=== PATIENT | female | born 1940 | race Caucasian/White ===

== ENCOUNTER → 2020-03-14 | Outpatient (REF) | payer MEDICARE ==
[2020-03-14 15:14] LABS: HEMOGLOBIN 13.2 g/dl (12.0-15.5); MEAN CORPUSCULAR HEMOGLOBIN 28.9 pg (27.0-33.0); MEAN CORPUSCULAR HGB CONC 31.4 g/dl (32.0-36.5); MEAN CORPUSCULAR VOLUME 91.9 fl (80.0-96.0); PLATELET COUNT, AUTOMATED 319 10^3/uL (150-450); RED BLOOD COUNT 4.57 10^6/uL (4.00-5.40); WHITE BLOOD COUNT 6.8 10^3/uL (4.0-10.0)
[2020-03-14 15:34] LABS: HEMOGLOBIN A1c 5.4 %
[2020-03-14 15:36] LABS: ALBUMIN 3.3 GM/DL (3.2-5.2); ALT/SGPT 20 U/L (12-78); BILIRUBIN,TOTAL 1.3 MG/DL (0.2-1.0); BLOOD UREA NITROGEN 8 MG/DL (7-18); CALCIUM LEVEL 8.9 MG/DL (8.8-10.2); CARBON DIOXIDE LEVEL 32 MEQ/L (21-32); CHLORIDE LEVEL 99 MEQ/L (98-107); CHOLESTEROL LEVEL 136 MG/DL (<200); CHOLESTEROL RISK RATIO 2.385 (<5); CREATININE FOR GFR 0.74 MG/DL (0.55-1.30); GLOMERULAR FILTRATION RATE > 60.0 (>39); GLUCOSE, FASTING 72 MG/DL (70-100); HDL CHOLESTEROL 57 MG/DL (>40); LDL CHOLESTEROL 57 MG/DL (<100); NON-HDL-C 79 MG/DL; NT-PRO BNP 3604 PG/ML (<450); POTASSIUM SERUM 3.8 MEQ/L (3.5-5.1); SODIUM LEVEL 140 MEQ/L (136-145); TOTAL 25(OH) VITAMIN D 7.5 NG/ML (30.0-100.0); TOTAL PROTEIN 7.9 GM/DL (6.4-8.2); TRIGLYCERIDES LEVEL 109 MG/DL (<150)
== END ==
LOC: M LAB REF 12:07
PROVIDERS: ATTEND Physician Assistant Medical
DX: L03.039 Cellulitis of unspecified toe (principal); I10 Essential (primary) hypertension; I25.10 Atherosclerotic heart disease of native coronary artery without angina pectoris; E78.5 Hyperlipidemia, unspecified; R73.01 Impaired fasting glucose; R60.9 Edema, unspecified

== ENCOUNTER → 2020-04-03 | Outpatient (REF) | payer MEDICARE ==
[2020-04-03 20:09] LABS: CALCIUM LEVEL 9.3 MG/DL (8.8-10.2); CREATININE FOR GFR 1.01 MG/DL (0.55-1.30); GLOMERULAR FILTRATION RATE 56.4 (>39); POTASSIUM SERUM 3.6 MEQ/L (3.5-5.1)
== END ==
LOC: M LAB REF 17:10
PROVIDERS: ATTEND Physician Assistant Medical
DX: R60.9 Edema, unspecified (principal)

== ENCOUNTER → 2020-06-27 | Outpatient (REF) | payer MEDICARE ==
[2020-06-27 16:07] LABS: HEMATOCRIT 41.8 % (36.0-47.0); HEMOGLOBIN 12.7 g/dl (12.0-15.5); MEAN CORPUSCULAR HEMOGLOBIN 28.3 pg (27.0-33.0); MEAN CORPUSCULAR HGB CONC 30.4 g/dl (32.0-36.5); MEAN CORPUSCULAR VOLUME 93.1 fl (80.0-96.0); PLATELET COUNT, AUTOMATED 288 10^3/uL (150-450); RED BLOOD COUNT 4.49 10^6/uL (4.00-5.40); WHITE BLOOD COUNT 6.7 10^3/uL (4.0-10.0)
[2020-06-27 16:27] LABS: HEMOGLOBIN A1c 5.2 %
[2020-06-27 16:40] LABS: ALBUMIN 3.2 GM/DL (3.2-5.2); ALT/SGPT 77 U/L (12-78); BILIRUBIN,TOTAL 0.8 MG/DL (0.2-1.0); BLOOD UREA NITROGEN 12 MG/DL (7-18); CALCIUM LEVEL 9.3 MG/DL (8.8-10.2); CARBON DIOXIDE LEVEL 32 MEQ/L (21-32); CHLORIDE LEVEL 103 MEQ/L (98-107); CHOLESTEROL LEVEL 159 MG/DL (<200); CHOLESTEROL RISK RATIO 1.939 (<5); GLOMERULAR FILTRATION RATE > 60.0 (>39); GLUCOSE, FASTING 90 MG/DL (70-100); HDL CHOLESTEROL 82 MG/DL (>40); LDL CHOLESTEROL 59 MG/DL (<100); NON-HDL-C 77 MG/DL; POTASSIUM SERUM 4.4 MEQ/L (3.5-5.1); SODIUM LEVEL 138 MEQ/L (136-145); THYROID STIMULATING HORMONE 0.507 uIU/ML (0.358-3.740); TOTAL PROTEIN 7.7 GM/DL (6.4-8.2); TRIGLYCERIDES LEVEL 92 MG/DL (<150)
== END ==
LOC: M LABDRAWC 15:32 → M LAB REF 15:32
PROVIDERS: ATTEND Physician Assistant Medical
DX: R53.83 Other fatigue (principal); R73.01 Impaired fasting glucose; E78.5 Hyperlipidemia, unspecified

== ENCOUNTER → 2023-04-29 | Outpatient (CLI) | payer MEDICARE ==
[~2023-04-29] MED LIST: ACET325C5 PO; ASPI81TA26 PO; ATOR40TA75; FURO40TA2; LEVO75TA4; METO1TAB32; PERC5TAB12 PO; POTA-151; SPIR-10; XARE20TA
== END ==
LOC: M SOG 13:04
PROVIDERS: ATTEND Orthopaedic Surgery
DX: S52.501D Unspecified fracture of the lower end of right radius, subsequent encounter for closed fracture with routine healing (principal)

== ENCOUNTER → 2023-05-21 | Outpatient (CLI) | payer MEDICARE ==
[~2023-05-21] MED LIST changes: +ACET1TAB55 PO; -ATOR40TA75; +ATOR40TA75 PO; +BISA10SU PR; +CEPH500C PO; +COLA100C5 PO; -FURO40TA2; +FURO40TA2 PO; -LEVO75TA4; +LEVO75TA4 PO; -METO1TAB32; +METO1TAB32 PO; +MIDO5TA PO; +PANT40TA29 PO; +PERCOCET PO; -POTA-151; +POTA-151 PO; -SPIR-10; +SPIR-10 PO; +TRAM50TA2 PO; +XARE15TA PO; -XARE20TA; +XARE20TA PO
== END ==
LOC: M SOG 08:00
PROVIDERS: ATTEND Physician Assistant
DX: S52.501D Unspecified fracture of the lower end of right radius, subsequent encounter for closed fracture with routine healing (principal); Z53.9 Procedure and treatment not carried out, unspecified reason

== ENCOUNTER 2023-05-24 12:07 | Inpatient (IN) | payer MEDICARE ==
[~2023-05-24] VITALS: Ht 167.6 cm; Wt 61.5 kg
[~2023-05-24 12:07] MED LIST changes: -ACET1TAB55 PO; -BISA10SU PR; -CEPH500C PO; -COLA100C5 PO; -MIDO5TA PO; -PANT40TA29 PO; -PERCOCET PO; -TRAM50TA2 PO; -XARE15TA PO
[2023-05-24] MEDS ORDERED: PANT40TA29 PO (12:58)
[2023-05-24] MEDS ORDERED: COLA100C5 PO (12:58)
[2023-05-24] MEDS ORDERED: MIDO5TA PO (12:58)
[2023-05-24] MEDS ORDERED: ACET1TAB55 PO (12:58)
[2023-05-24] MEDS ORDERED: TRAM50TA2 PO (12:58)
[2023-05-24] MEDS ORDERED: XARE15TA PO (12:58)
[2023-05-24] MEDS ORDERED: BISA10SU PR (12:58)
[2023-05-24] MEDS ORDERED: PERCOCET PO (12:58)
[2023-05-24] MEDS ORDERED: CEPH500C PO (12:58)
[2023-05-24] MEDS ORDERED: oxyCODONE 5MG TAB PO PRN (13:10)
[2023-05-24] MEDS ORDERED: BISACODYL 10MG SUPP PR PRN (13:10)
[2023-05-24] MEDS ORDERED: traMADol 50 MG TAB PO PRN (13:10)
[2023-05-24 13:25] VITALS: BP 123/58; TEMP 97; O2SAT 100
[2023-05-24] MEDS ORDERED: MAG SULF 1GM/100ML (MAG RUN) 1 GM in IV 1 EA IV SCH (15:00)
[2023-05-24] MEDS: CEPHALEXIN 500 MG CAP PO SCH ×2 (15:32→21:22)
[2023-05-24] MEDS: ATORVASTATIN 20 MG TAB PO SCH (15:35)
[2023-05-24] MEDS: ACETAMINOPHEN TAB 650MG DOSE (2X325MG) PO SCH ×2 (16:00→21:22)
[2023-05-24] MEDS: MIDODRINE 5 MG TAB PO SCH (17:27)
[2023-05-24] MEDS: RIVAROXABAN 15MG TAB (XARELTO) PO SCH (17:27)
[2023-05-24 20:00] VITALS: BP 104/55; TEMP 97.5; O2SAT 99
[2023-05-24] MEDS: DOCUSATE SODIUM 100MG CAPSULE PO SCH (21:22)
[2023-05-24] MEDS: methocarbamoL 500 MG TAB PO SCH (21:22)
[2023-05-25 06:00] VITALS: BP 90/52; TEMP 97; O2SAT 99
[2023-05-25] MEDS: CEPHALEXIN 500 MG CAP PO SCH ×3 (06:16→20:16)
[2023-05-25 06:17] LABS: ALBUMIN 1.7 G/DL (3.2-5.2); BILIRUBIN,TOTAL 1.4 MG/DL (0.3-1.2); CALCIUM LEVEL 7.6 MG/DL (8.3-10.6); CREATININE FOR GFR 1.07 MG/DL (0.55-1.30); GLOMERULAR FILTRATION RATE 52.4 (>32); MAGNESIUM LEVEL 2.2 MG/DL (1.8-2.4); POTASSIUM SERUM 3.9 MMOL/L (3.5-5.1); TOTAL PROTEIN 5.9 G/DL (5.7-8.2)
[2023-05-25] MEDS: ACETAMINOPHEN TAB 650MG DOSE (2X325MG) PO SCH ×3 (07:55→20:16)
[2023-05-25] MEDS: MIDODRINE 5 MG TAB PO SCH ×3 (07:55→15:30)
[2023-05-25] MEDS: PANTOPRAZOLE 40MG TAB (PROTONIX) PO SCH (09:28)
[2023-05-25] MEDS: DOCUSATE SODIUM 100MG CAPSULE PO SCH ×2 (09:28→20:16)
[2023-05-25] MEDS: ATORVASTATIN 20 MG TAB PO SCH (09:28)
[2023-05-25] MEDS: ASPIRIN 81MG ENTERIC TABLET PO SCH (09:28)
[2023-05-25] MEDS: methocarbamoL 500 MG TAB PO SCH ×3 (09:28→20:16)
[2023-05-25] MEDS: LEVOTHYROXINE 75MCG TABLET (0.075MG) PO SCH (09:28)
[2023-05-25 14:00] VITALS: BP 109/53; O2SAT 98
[2023-05-25] MEDS: RIVAROXABAN 15MG TAB (XARELTO) PO SCH (18:13)
[2023-05-25 20:00] VITALS: BP 97/52; TEMP 97.4; O2SAT 98
[2023-05-26] VITALS (11 sets, daily range): BP systolic 99–124; BP diastolic 53–72; TEMP 96.5–98.4; O2SAT 95–100
[2023-05-26] MEDS: CEPHALEXIN 500 MG CAP PO SCH ×3 (05:26→21:51)
[2023-05-26 05:40] LABS: HEMATOCRIT 31.3 % (36.0-47.0); HEMOGLOBIN 9.8 g/dl (12.0-15.5); MEAN CORPUSCULAR HEMOGLOBIN 28.7 pg (27.0-33.0); MEAN CORPUSCULAR HGB CONC 31.3 g/dl (32.0-36.5); MEAN CORPUSCULAR VOLUME 91.8 fl (80.0-96.0); PLATELET COUNT, AUTOMATED 350 10^3/uL (150-450); RED BLOOD COUNT 3.41 10^6/uL (4.00-5.40); WHITE BLOOD COUNT 10.3 10^3/uL (4.0-10.0)
[2023-05-26 06:04] LABS: ALBUMIN 1.8 G/DL (3.2-5.2); BILIRUBIN,TOTAL 1.1 MG/DL (0.3-1.2); CALCIUM LEVEL 7.6 MG/DL (8.3-10.6); CREATININE FOR GFR 1.01 MG/DL (0.55-1.30); MAGNESIUM LEVEL 2.1 MG/DL (1.8-2.4); POTASSIUM SERUM 4.2 MMOL/L (3.5-5.1); TOTAL PROTEIN 5.9 G/DL (5.7-8.2)
[2023-05-26 06:06] LABS: TOTAL 25(OH) VITAMIN D 11.1 NG/ML (20.0-100.0)
[2023-05-26] MEDS: MIDODRINE 5 MG TAB PO SCH ×3 (07:55→16:05)
[2023-05-26] MEDS: ATORVASTATIN 20 MG TAB PO SCH (07:56)
[2023-05-26] MEDS: ACETAMINOPHEN TAB 650MG DOSE (2X325MG) PO SCH ×3 (07:56→21:51)
[2023-05-26] MEDS: DOCUSATE SODIUM 100MG CAPSULE PO SCH ×2 (07:56→21:51)
[2023-05-26] MEDS: PANTOPRAZOLE 40MG TAB (PROTONIX) PO SCH (07:56)
[2023-05-26] MEDS: ASPIRIN 81MG ENTERIC TABLET PO SCH (07:57)
[2023-05-26] MEDS: methocarbamoL 500 MG TAB PO SCH ×3 (07:57→21:51)
[2023-05-26] MEDS: LEVOTHYROXINE 75MCG TABLET (0.075MG) PO SCH (07:58)
[2023-05-26] MEDS ORDERED: ALBUTEROL SULFATE 2.5MG/0.5ML INH NEB SOLN NEB SCH (08:00)
[2023-05-26] MEDS ORDERED: methylPREDNISolone 125MG 2ML VIAL IV ONE (08:00)
[2023-05-26 08:40] LABS: ABG HCO3 20.3 MMOL/L (22.0-26.0); ABG O2 SATURATION 98.5 % (95.0-99.0); ABG PARTIAL PRESSURE O2 129.1 mmHg (75.0-100.0); ABG STANDARD HCO3 19.6 MMOL/L. (22.0-26.0); ABG TOTAL CO2 21.6 MMOL/L (23.0-31.0); ABG pH (ARTERIAL) 7.292 UNITS (7.350-7.450)
[2023-05-26] MEDS ORDERED: VITAMIN D 50,000 UNITS CAPSULE (ERGOCALCIFEROL 1.25MG) PO SCH (09:00)
[2023-05-26] MEDS ORDERED: FUROSEMIDE 40MG/4ML VIAL IV ONE (09:00)
[2023-05-26 11:06] LABS: PROCALCITONIN 0.21 ng/ml
[2023-05-26] MEDS ORDERED: MAGNESIUM CITRATE 300ML BTL PO ONE (17:00)
[2023-05-26] MEDS: RIVAROXABAN 15MG TAB (XARELTO) PO SCH (17:10)
[2023-05-26] MEDS ORDERED: FUROSEMIDE 20MG/2ML VIAL IV STA (18:57)
[2023-05-26] MEDS: ALBUTEROL SULFATE 2.5MG/0.5ML INH NEB SOLN NEB SCH (20:42)
[2023-05-26] MEDS: BISACODYL 10MG SUPP PR SCH (21:51)
[2023-05-27] MEDS ORDERED: HEPARIN SOD (PORCINE) 5000UNITS/ML 1ML VIAL/SYRINGE IV PRN (05:50)
[2023-05-27] MEDS: LEVOTHYROXINE 75MCG TABLET (0.075MG) PO SCH (06:00)
[2023-05-27] MEDS ORDERED: HEPARIN DRIP 25,000 UNITS in IV 1 EA IV SCH (06:00)
[2023-05-27] MEDS: CEPHALEXIN 500 MG CAP PO SCH ×3 (06:00→21:14)
[2023-05-27 06:03] VITALS: BP 108/50; TEMP 95.8; O2SAT 95
[2023-05-27 06:35] LABS: HEMATOCRIT 32.5 % (36.0-47.0); HEMOGLOBIN 10.2 g/dl (12.0-15.5); MEAN CORPUSCULAR HEMOGLOBIN 29.4 pg (27.0-33.0); MEAN CORPUSCULAR HGB CONC 31.4 g/dl (32.0-36.5); MEAN CORPUSCULAR VOLUME 93.7 fl (80.0-96.0); PLATELET COUNT, AUTOMATED 420 10^3/uL (150-450); RED BLOOD COUNT 3.47 10^6/uL (4.00-5.40); WHITE BLOOD COUNT 10.3 10^3/uL (4.0-10.0)
[2023-05-27 06:58] LABS: BILIRUBIN,TOTAL 1.1 MG/DL (0.3-1.2); CALCIUM LEVEL 7.7 MG/DL (8.3-10.6); CREATININE FOR GFR 1.16 MG/DL (0.55-1.30); GLOMERULAR FILTRATION RATE 47.7 (>32); POTASSIUM SERUM 4.4 MMOL/L (3.5-5.1); TOTAL PROTEIN 6.7 G/DL (5.7-8.2)
[2023-05-27] MEDS: ALBUTEROL SULFATE 2.5MG/0.5ML INH NEB SOLN NEB SCH ×2 (07:18→20:26)
[2023-05-27] MEDS: methocarbamoL 500 MG TAB PO SCH ×3 (08:00→21:14)
[2023-05-27] MEDS: PANTOPRAZOLE 40MG TAB (PROTONIX) PO SCH (08:00)
[2023-05-27] MEDS: ACETAMINOPHEN TAB 650MG DOSE (2X325MG) PO SCH ×3 (08:00→21:14)
[2023-05-27] MEDS: FUROSEMIDE 40MG/4ML VIAL IV SCH (08:00)
[2023-05-27] MEDS: ATORVASTATIN 20 MG TAB PO SCH (08:00)
[2023-05-27] MEDS: MIDODRINE 5 MG TAB PO SCH ×3 (08:00→15:31)
[2023-05-27 08:01] VITALS: O2SAT 93
[2023-05-27] MEDS: DOCUSATE SODIUM 100MG CAPSULE PO SCH ×2 (08:01→21:14)
[2023-05-27] MEDS: ASPIRIN 81MG ENTERIC TABLET PO SCH (08:01)
[2023-05-27] MEDS: BISACODYL 10MG SUPP PR SCH ×2 (08:21→21:14)
[2023-05-27] MEDS ORDERED: FUROSEMIDE 20MG/2ML VIAL IV SCH (09:00)
[2023-05-27 11:02] VITALS: BP 93/50; O2SAT 95
[2023-05-27 14:00] VITALS: BP 99/52; TEMP 97.5; O2SAT 98
[2023-05-27 19:47] VITALS: BP 97/50; TEMP 97; O2SAT 98
[2023-05-28] MEDS: CEPHALEXIN 500 MG CAP PO SCH ×2 (05:44→13:16)
[2023-05-28] MEDS: LEVOTHYROXINE 75MCG TABLET (0.075MG) PO SCH (05:44)
[2023-05-28 06:00] VITALS: BP 105/58; TEMP 97.6; O2SAT 98
[2023-05-28 06:08] LABS: HEMATOCRIT 29.9 % (36.0-47.0); HEMOGLOBIN 9.4 g/dl (12.0-15.5); MEAN CORPUSCULAR HEMOGLOBIN 29.4 pg (27.0-33.0); MEAN CORPUSCULAR HGB CONC 31.4 g/dl (32.0-36.5); MEAN CORPUSCULAR VOLUME 93.4 fl (80.0-96.0); PLATELET COUNT, AUTOMATED 407 10^3/uL (150-450); WHITE BLOOD COUNT 8.6 10^3/uL (4.0-10.0)
[2023-05-28 06:32] LABS: BILIRUBIN,TOTAL 0.9 MG/DL (0.3-1.2); CALCIUM LEVEL 7.5 MG/DL (8.3-10.6); CREATININE FOR GFR 1.08 MG/DL (0.55-1.30); GLOMERULAR FILTRATION RATE 51.8 (>32); MAGNESIUM LEVEL 1.9 MG/DL (1.8-2.4); POTASSIUM SERUM 3.8 MMOL/L (3.5-5.1); TOTAL PROTEIN 6.3 G/DL (5.7-8.2)
[2023-05-28] MEDS: ALBUTEROL SULFATE 2.5MG/0.5ML INH NEB SOLN NEB SCH ×2 (07:51→18:59)
[2023-05-28] MEDS: DOCUSATE SODIUM 100MG CAPSULE PO SCH ×2 (08:59→21:38)
[2023-05-28] MEDS: ATORVASTATIN 20 MG TAB PO SCH (08:59)
[2023-05-28] MEDS: ASPIRIN 81MG ENTERIC TABLET PO SCH (08:59)
[2023-05-28] MEDS: PANTOPRAZOLE 40MG TAB (PROTONIX) PO SCH (08:59)
[2023-05-28] MEDS: MIDODRINE 5 MG TAB PO SCH ×3 (08:59→16:14)
[2023-05-28] MEDS: methocarbamoL 500 MG TAB PO SCH ×3 (08:59→21:37)
[2023-05-28] MEDS: ACETAMINOPHEN TAB 650MG DOSE (2X325MG) PO SCH ×3 (09:00→21:38)
[2023-05-28] MEDS: BISACODYL 10MG SUPP PR SCH ×2 (09:00→21:38)
[2023-05-28] MEDS: FUROSEMIDE 40MG/4ML VIAL IV SCH (09:00)
[2023-05-28 14:00] VITALS: BP 109/55; TEMP 97.6; O2SAT 100
[2023-05-28] MEDS ORDERED: FLEET ENEMA PR PRN (17:45)
[2023-05-28 20:00] VITALS: BP 112/56; TEMP 96.7; O2SAT 100
[2023-05-29] MEDS: LEVOTHYROXINE 75MCG TABLET (0.075MG) PO SCH (05:32)
[2023-05-29 06:00] VITALS: BP 113/56; TEMP 96.4
[2023-05-29] MEDS: ALBUTEROL SULFATE 2.5MG/0.5ML INH NEB SOLN NEB SCH ×2 (07:39→20:55)
[2023-05-29] MEDS: BISACODYL 10MG SUPP PR SCH ×2 (09:00→20:51)
[2023-05-29] MEDS: ACETAMINOPHEN TAB 650MG DOSE (2X325MG) PO SCH ×3 (10:04→20:43)
[2023-05-29] MEDS: methocarbamoL 500 MG TAB PO SCH ×3 (10:04→20:42)
[2023-05-29] MEDS: ASPIRIN 81MG ENTERIC TABLET PO SCH (10:05)
[2023-05-29] MEDS: DOCUSATE SODIUM 100MG CAPSULE PO SCH ×2 (10:05→20:51)
[2023-05-29] MEDS: PANTOPRAZOLE 40MG TAB (PROTONIX) PO SCH (10:05)
[2023-05-29] MEDS: ATORVASTATIN 20 MG TAB PO SCH (10:05)
[2023-05-29] MEDS: FUROSEMIDE 40MG/4ML VIAL IV SCH (10:06)
[2023-05-29] MEDS: MIDODRINE 5 MG TAB PO SCH ×3 (10:09→16:47)
[2023-05-29 14:00] VITALS: BP 105/58; TEMP 96.8; O2SAT 98
[2023-05-29 16:47] VITALS: BP 103/55
[2023-05-29 20:34] VITALS: BP 100/55; TEMP 97.3; O2SAT 98
[2023-05-30 05:23] VITALS: BP 109/59; TEMP 97.3; O2SAT 98
[2023-05-30] MEDS: LEVOTHYROXINE 75MCG TABLET (0.075MG) PO SCH (05:32)
[2023-05-30] MEDS: ALBUTEROL SULFATE 2.5MG/0.5ML INH NEB SOLN NEB SCH ×2 (07:20→20:14)
[2023-05-30] MEDS: PANTOPRAZOLE 40MG TAB (PROTONIX) PO SCH (08:44)
[2023-05-30] MEDS: ATORVASTATIN 20 MG TAB PO SCH (08:44)
[2023-05-30] MEDS: ASPIRIN 81MG ENTERIC TABLET PO SCH (08:44)
[2023-05-30] MEDS: methocarbamoL 500 MG TAB PO SCH ×3 (08:44→20:25)
[2023-05-30] MEDS: MIDODRINE 5 MG TAB PO SCH ×3 (08:44→17:14)
[2023-05-30] MEDS: ACETAMINOPHEN TAB 650MG DOSE (2X325MG) PO SCH ×3 (08:44→20:25)
[2023-05-30] MEDS: DOCUSATE SODIUM 100MG CAPSULE PO SCH ×2 (08:45→20:25)
[2023-05-30] MEDS: BISACODYL 10MG SUPP PR SCH ×2 (08:45→20:25)
[2023-05-30] MEDS: FUROSEMIDE 40MG/4ML VIAL IV SCH (08:45)
[2023-05-30 14:00] VITALS: BP 121/58; TEMP 96.8; O2SAT 99
[2023-05-30] MEDS: RIVAROXABAN 15MG TAB (XARELTO) PO SCH (18:50)
[2023-05-30 19:48] VITALS: BP 121/64; TEMP 98.7; O2SAT 99
[2023-05-31 05:12] VITALS: BP 113/56; TEMP 97.3; O2SAT 96
[2023-05-31] MEDS: LEVOTHYROXINE 75MCG TABLET (0.075MG) PO SCH (05:14)
[2023-05-31] MEDS: ALBUTEROL SULFATE 2.5MG/0.5ML INH NEB SOLN NEB SCH (07:19)
[2023-05-31] MEDS: PANTOPRAZOLE 40MG TAB (PROTONIX) PO SCH (07:59)
[2023-05-31] MEDS: DOCUSATE SODIUM 100MG CAPSULE PO SCH ×2 (08:00→20:48)
[2023-05-31] MEDS: MIDODRINE 5 MG TAB PO SCH ×3 (08:00→15:30)
[2023-05-31] MEDS: ASPIRIN 81MG ENTERIC TABLET PO SCH (08:00)
[2023-05-31] MEDS: ATORVASTATIN 20 MG TAB PO SCH (08:00)
[2023-05-31] MEDS: methocarbamoL 500 MG TAB PO SCH (08:00)
[2023-05-31] MEDS: ACETAMINOPHEN TAB 650MG DOSE (2X325MG) PO SCH ×3 (08:00→20:48)
[2023-05-31] MEDS: BISACODYL 10MG SUPP PR SCH (08:01)
[2023-05-31] MEDS ORDERED: FUROSEMIDE 40 MG TAB PO SCH (09:00)
[2023-05-31 11:51] VITALS: BP 108/52
[2023-05-31 11:55] LABS: HEMATOCRIT 36.1 % (36.0-47.0); HEMOGLOBIN 11.3 g/dl (12.0-15.5); MEAN CORPUSCULAR HEMOGLOBIN 28.9 pg (27.0-33.0); MEAN CORPUSCULAR HGB CONC 31.3 g/dl (32.0-36.5); MEAN CORPUSCULAR VOLUME 92.3 fl (80.0-96.0); PLATELET COUNT, AUTOMATED 416 10^3/uL (150-450); RED BLOOD COUNT 3.91 10^6/uL (4.00-5.40); WHITE BLOOD COUNT 8.5 10^3/uL (4.0-10.0)
[2023-05-31 12:14] LABS: ALBUMIN 2.4 G/DL (3.2-5.2); ALKALINE PHOSPHATASE 273 U/L (46-116); ALT/SGPT 27 U/L (7.0-40); AST/SGOT 35 U/L (<34); BILIRUBIN,TOTAL 1.1 MG/DL (0.3-1.2); BLOOD UREA NITROGEN 16 MG/DL (9-23); CALCIUM LEVEL 8.3 MG/DL (8.3-10.6); CARBON DIOXIDE LEVEL 25 MMOL/L (20-31); CHLORIDE LEVEL 105 MMOL/L (98-107); CREATININE FOR GFR 0.95 MG/DL (0.55-1.30); GLOMERULAR FILTRATION RATE > 60.0 (>32); GLUCOSE, FASTING 67 MG/DL (74-106); MAGNESIUM LEVEL 1.4 MG/DL (1.8-2.4); POTASSIUM SERUM 3.6 MMOL/L (3.5-5.1); SODIUM LEVEL 143 MMOL/L (136-145); TOTAL PROTEIN 6.8 G/DL (5.7-8.2)
[2023-05-31] MEDS ORDERED: MAG SULF 1GM/100ML (MAG RUN) 1 GM in IV 1 EA IV ONE (13:00)
[2023-05-31] MEDS ORDERED: methocarbamoL 500 MG TAB PO PRN (13:00)
[2023-05-31 14:00] VITALS: BP 113/58; TEMP 97.6; O2SAT 99
[2023-05-31] MEDS: RIVAROXABAN 15MG TAB (XARELTO) PO SCH (17:11)
[2023-05-31 20:00] VITALS: BP 99/56; TEMP 96.4; O2SAT 99
[2023-06-01] MEDS: LEVOTHYROXINE 75MCG TABLET (0.075MG) PO SCH (05:57)
[2023-06-01 06:00] VITALS: BP 111/56; TEMP 96.3; O2SAT 99
[2023-06-01] MEDS: PANTOPRAZOLE 40MG TAB (PROTONIX) PO SCH (07:43)
[2023-06-01] MEDS: MIDODRINE 5 MG TAB PO SCH ×2 (07:43→11:02)
[2023-06-01] MEDS: ATORVASTATIN 20 MG TAB PO SCH (07:43)
[2023-06-01] MEDS: ASPIRIN 81MG ENTERIC TABLET PO SCH (07:43)
[2023-06-01] MEDS: ACETAMINOPHEN TAB 650MG DOSE (2X325MG) PO SCH (07:44)
[2023-06-01] MEDS: DOCUSATE SODIUM 100MG CAPSULE PO SCH (07:44)
[2023-06-01 09:06] LABS: ALBUMIN 2.5 G/DL (3.2-5.2); BILIRUBIN,TOTAL 1.1 MG/DL (0.3-1.2); CALCIUM LEVEL 8.5 MG/DL (8.3-10.6); CREATININE FOR GFR 0.96 MG/DL (0.55-1.30); GLOMERULAR FILTRATION RATE 59.4 (>32); MAGNESIUM LEVEL 1.8 MG/DL (1.8-2.4); POTASSIUM SERUM 3.3 MMOL/L (3.5-5.1); TOTAL PROTEIN 7.2 G/DL (5.7-8.2)
[2023-06-01 10:57] VITALS: BP 110/54
[2023-06-01] MEDS ORDERED: POTASSIUM CHLORIDE 10MEQ SR TABLET PO ONE (11:00)
[2023-06-01] MEDS ORDERED: DRIS50003 PO (13:49)
[2023-06-01] MEDS ORDERED: POTA-136 PO (13:49)
[2023-06-01] MEDS ORDERED: MIDO10TA PO (17:04)
[2023-06-02] MEDS ORDERED: POTASSIUM CHLORIDE 10MEQ SR TABLET PO SCH (09:00)
== END 2023-06-01 15:30 | disposition home health service (06) | DRG 871 ==
LOC: M PM&R 13:05
PROVIDERS: ADMIT Student in an Organized Health Care Education/Training Program; ATTEND Student in an Organized Health Care Education/Training Program
PROC: B246ZZZ Ultrasonography of Right and Left Heart (ICD-10-PCS; principal; 2023-05-26)
DX: R78.81 Bacteremia (principal); I50.23 Acute on chronic systolic (congestive) heart failure; N39.0 Urinary tract infection, site not specified; S52.501D Unspecified fracture of the lower end of right radius, subsequent encounter for closed fracture with routine healing; I11.0 Hypertensive heart disease with heart failure; B96.20 Unspecified Escherichia coli [E. coli] as the cause of diseases classified elsewhere; K59.09 Other constipation; M81.0 Age-related osteoporosis without current pathological fracture; Z74.09 Other reduced mobility; Z74.1 Need for assistance with personal care; E78.00 Pure hypercholesterolemia, unspecified; E03.9 Hypothyroidism, unspecified; I25.10 Atherosclerotic heart disease of native coronary artery without angina pectoris; I27.20 Pulmonary hypertension, unspecified; I48.91 Unspecified atrial fibrillation; I73.9 Peripheral vascular disease, unspecified; E55.9 Vitamin D deficiency, unspecified; K44.9 Diaphragmatic hernia without obstruction or gangrene; S22.000S Wedge compression fracture of unspecified thoracic vertebra, sequela; S32.000S Wedge compression fracture of unspecified lumbar vertebra, sequela; Z95.0 Presence of cardiac pacemaker; Z89.421 Acquired absence of other right toe(s); Z95.5 Presence of coronary angioplasty implant and graft; Z95.828 Presence of other vascular implants and grafts; Z90.49 Acquired absence of other specified parts of digestive tract; Z96.652 Presence of left artificial knee joint; Z96.643 Presence of artificial hip joint, bilateral; Z86.73 Personal history of transient ischemic attack (TIA), and cerebral infarction without residual deficits; Z86.718 Personal history of other venous thrombosis and embolism; Z79.82 Long term (current) use of aspirin; Z79.01 Long term (current) use of anticoagulants; Z79.890 Hormone replacement therapy; Z79.899 Other long term (current) drug therapy; Z88.1 Allergy status to other antibiotic agents; Z88.8 Allergy status to other drugs, medicaments and biological substances; Z91.040 Latex allergy status

== ENCOUNTER → 2023-06-03 | Outpatient (CLI) | payer MEDICARE ==
[~2023-06-03] MED LIST changes: +ACET1TAB55 PO; +BISA10SU PR; +CEPH500C PO; +COLA100C5 PO; +DRIS50003 PO; +MIDO10TA PO; +MIDO5TA PO; +PANT40TA29 PO; +PERCOCET PO; +POTA-136 PO; +TRAM50TA2 PO; +XARE15TA PO
== END ==
LOC: M SOG 08:03
PROVIDERS: ATTEND Physician Assistant
DX: S52.501A Unspecified fracture of the lower end of right radius, initial encounter for closed fracture (principal); Y93.9 Activity, unspecified; Y92.9 Unspecified place or not applicable

== ENCOUNTER → 2023-07-01 | Outpatient (REF) | payer MEDICARE ==
[2023-07-01 17:00] LABS: BASO # 0.1 10^3/uL (0.0-0.2); EOS # 0.2 10^3/uL (0.0-0.5); EOS % 3.2 % (0.0-3.0); HEMATOCRIT 35.4 % (36.0-47.0); HEMOGLOBIN 11.2 g/dl (12.0-15.5); LYMPH # 1.7 10^3/uL (1.5-5.0); LYMPH % 23.4 % (24.0-44.0); MEAN CORPUSCULAR HGB CONC 31.6 g/dl (32.0-36.5); MEAN CORPUSCULAR VOLUME 91.7 fl (80.0-96.0); MONO # 0.6 10^3/uL (0.0-0.8); NEUTROPHILS # 4.7 10^3/uL (1.5-8.5); NEUTROPHILS % 64.3 % (36.0-66.0); PLATELET COUNT, AUTOMATED 271 10^3/uL (150-450); RED BLOOD COUNT 3.86 10^6/uL (4.00-5.40); WHITE BLOOD COUNT 7.2 10^3/uL (4.0-10.0)
[2023-07-01 17:26] LABS: ALKALINE PHOSPHATASE 257 U/L (46-116); ALT/SGPT 62 U/L (7.0-40); AST/SGOT 64 U/L (<34); BILIRUBIN,DIRECT 0.5 MG/DL (<0.4); BILIRUBIN,TOTAL 0.9 MG/DL (0.3-1.2); BLOOD UREA NITROGEN 12 MG/DL (9-23); CALCIUM LEVEL 9.6 MG/DL (8.3-10.6); CARBON DIOXIDE LEVEL 27 MMOL/L (20-31); CHLORIDE LEVEL 105 MMOL/L (98-107); CREATININE FOR GFR 0.79 MG/DL (0.55-1.30); GLOMERULAR FILTRATION RATE > 60.0 (>32); GLUCOSE, FASTING 81 MG/DL (74-106); POTASSIUM SERUM 4.6 MMOL/L (3.5-5.1); SODIUM LEVEL 142 MMOL/L (136-145); TOTAL PROTEIN 7.1 G/DL (5.7-8.2)
[2023-07-01 18:01] LABS: HEPATITIS B CORE ANTIBODY IGM NEGATIVE (NEGATIVE); HEPATITIS C VIRUS ABY INDEX 0.13 INDEX (<0.8)
== END ==
LOC: M SHH 15:34
PROVIDERS: ATTEND Nurse Practitioner
DX: R74.01 Elevation of levels of liver transaminase levels (principal); Z79.899 Other long term (current) drug therapy

== ENCOUNTER → 2023-07-15 | Outpatient (REF) | payer MEDICARE ==
[~2023-07-15] MED LIST changes: +ALBU2.5V10 NEB; +CEFD1CAP9 PO; +FURO20TA2 PO; +POTA-149 PO
[2023-07-15 15:05] LABS: APPEARANCE, URINE HAZY (CLEAR); BACTERIA, URINE AUTO NEGATIVE (NEGATIVE); BILIRUBIN, URINE AUTO NEGATIVE (NEGATIVE); BLOOD, URINE BLOOD 1+ (NEGATIVE); COLOR, URINE YELLOW (YELLOW); GLUCOSE, URINE (UA) AUTO NEGATIVE (NEGATIVE); KETONE, URINE AUTO NEGATIVE (NEGATIVE); LEUKOCYTE ESTERASE, URINE AUTO 3+ (NEGATIVE); NITRITE, URINE AUTO NEGATIVE (NEGATIVE); PROTEIN, URINE AUTO NEGATIVE (NEGATIVE); RBC, URINE AUTO 0 /HPF (0-3); SPECIFIC GRAVITY URINE AUTO 1.003 (1.002-1.035); SQUAMOUS EPITHELIAL CELL UR AU 1 /HPF (0-6); UROBILINOGEN, URINE AUTO 0.2 mg/dL (0.0-2.0); WBC, URINE AUTO 42 /HPF (0-3)
[2023-07-15 15:09] LABS: BASO # 0.1 10^3/uL (0.0-0.2); BASO % 1.1 % (0.0-1.0); EOS # 0.2 10^3/uL (0.0-0.5); EOS % 2.9 % (0.0-3.0); HEMATOCRIT 37.2 % (36.0-47.0); HEMOGLOBIN 11.5 g/dl (12.0-15.5); LYMPH # 1.8 10^3/uL (1.5-5.0); LYMPH % 21.5 % (24.0-44.0); MEAN CORPUSCULAR HGB CONC 30.9 g/dl (32.0-36.5); MEAN CORPUSCULAR VOLUME 93.7 fl (80.0-96.0); MONO # 0.7 10^3/uL (0.0-0.8); MONO % 8.4 % (2.0-8.0); NEUTROPHILS # 5.4 10^3/uL (1.5-8.5); NEUTROPHILS % 65.7 % (36.0-66.0); PLATELET COUNT, AUTOMATED 352 10^3/uL (150-450); RED BLOOD COUNT 3.97 10^6/uL (4.00-5.40); WHITE BLOOD COUNT 8.2 10^3/uL (4.0-10.0)
[2023-07-15 15:35] LABS: IRON (FE) 39 UG/DL (50-170); PERCENT SATURATION 15.2 % (13.2-45.0); TOTAL IRON BINDING CAPACITY 257 UG/DL (250-425)
[2023-07-15 15:39] LABS: ALBUMIN 3.1 G/DL (3.2-5.2); ALKALINE PHOSPHATASE 197 U/L (46-116); ALT/SGPT 29 U/L (7.0-40); AST/SGOT 25 U/L (<34); BILIRUBIN,TOTAL 1.1 MG/DL (0.3-1.2); BLOOD UREA NITROGEN 13 MG/DL (9-23); CARBON DIOXIDE LEVEL 24 MMOL/L (20-31); CHLORIDE LEVEL 105 MMOL/L (98-107); CREATININE FOR GFR 0.92 MG/DL (0.55-1.30); GLOMERULAR FILTRATION RATE > 60.0 (>32); GLUCOSE, FASTING 91 MG/DL (74-106); POTASSIUM SERUM 4.8 MMOL/L (3.5-5.1); SODIUM LEVEL 138 MMOL/L (136-145); THYROID STIMULATING HORMONE 0.442 uIU/ML (0.55-4.78); TOTAL PROTEIN 6.9 G/DL (5.7-8.2); VITAMIN B12 LEVEL 612 PG/ML (211-911)
[2023-07-16 15:08] LABS: EBV VIRAL CAPSID AG IgG >600.0 U/mL (0.0-17.9); EBV VIRAL CAPSID AG IgM <36.0 U/mL (0.0-35.9)
== END ==
LOC: M SHH 13:29
PROVIDERS: ATTEND Physician Assistant Medical
DX: R11.0 Nausea (principal); R53.83 Other fatigue; E03.9 Hypothyroidism, unspecified; N39.0 Urinary tract infection, site not specified; I11.0 Hypertensive heart disease with heart failure; Z86.39 Personal history of other endocrine, nutritional and metabolic disease

== ENCOUNTER 2023-07-17 20:43 | Inpatient (IN) | payer MEDICARE ==
[~2023-07-17] VITALS: Ht 162.6 cm; Wt 66.0 kg
[~2023-07-17 20:43] MED LIST changes: -ALBU2.5V10 NEB; -CEFD1CAP9 PO; -FURO20TA2 PO; -POTA-149 PO
[2023-07-17 21:03] LABS: ABG BASE EXCESS -7.8 (-2.0-2.0); ABG HCO3 18.4 MMOL/L (22.0-26.0); ABG O2 SATURATION 97.2 % (95.0-99.0); ABG PARTIAL PRESSURE CO2 40.2 mmHg (35.0-45.0); ABG PARTIAL PRESSURE O2 108.6 mmHg (75.0-100.0); ABG STANDARD HCO3 18.2 MMOL/L. (22.0-26.0); ABG TOTAL CO2 19.7 MMOL/L (23.0-31.0); ABG pH (ARTERIAL) 7.279 UNITS (7.350-7.450)
[2023-07-17] MEDS: IPRATROPIUM 0.5MG/ALBUTEROL 2.5MG INH SOL UD 3ML (DUONEB) NEB SCH ×2 (21:04→21:26)
[2023-07-17] MEDS ORDERED: methylPREDNISolone 125MG 2ML VIAL IV ONE (21:10)
[2023-07-17 21:17] LABS: BASO # 0.1 10^3/uL (0.0-0.2); EOS # 0.4 10^3/uL (0.0-0.5); EOS % 4.2 % (0.0-3.0); HEMATOCRIT 36.9 % (36.0-47.0); HEMOGLOBIN 11.3 g/dl (12.0-15.5); LYMPH # 2.2 10^3/uL (1.5-5.0); LYMPH % 22.3 % (24.0-44.0); MEAN CORPUSCULAR HEMOGLOBIN 29.3 pg (27.0-33.0); MEAN CORPUSCULAR HGB CONC 30.6 g/dl (32.0-36.5); MEAN CORPUSCULAR VOLUME 95.6 fl (80.0-96.0); MONO # 0.6 10^3/uL (0.0-0.8); MONO % 6.2 % (2.0-8.0); NEUTROPHILS # 6.4 10^3/uL (1.5-8.5); PLATELET COUNT, AUTOMATED 417 10^3/uL (150-450); RED BLOOD COUNT 3.86 10^6/uL (4.00-5.40); WHITE BLOOD COUNT 9.8 10^3/uL (4.0-10.0)
[2023-07-17] MEDS ORDERED: ONDANSETRON 4MG 2ML VIAL IV ONE (21:20)
[2023-07-17] MEDS ORDERED: ALBUTEROL SULFATE 2.5MG/0.5ML INH NEB SOLN INH ONE (21:20)
[2023-07-17] MEDS ORDERED: IPRATROPIUM 0.02% SOLN 0.5MG 2.5ML NEB INH ONE (21:20)
[2023-07-17] MEDS ORDERED: ONDANSETRON 4MG 2ML VIAL As Ordered ONE (21:21)
[2023-07-17 21:37] LABS: CK-MB VALUE MASS 1.8 NG/ML (<3.6)
[2023-07-17 22:45] LABS: ALBUMIN 2.1 G/DL (3.2-5.2); ALKALINE PHOSPHATASE 139 U/L (46-116); ALT/SGPT 19 U/L (7.0-40); AST/SGOT 24 U/L (<34); BILIRUBIN,DIRECT 0.4 MG/DL (<0.4); BILIRUBIN,TOTAL 0.7 MG/DL (0.3-1.2); BLOOD UREA NITROGEN 12 MG/DL (9-23); CALCIUM LEVEL 6.1 MG/DL (8.3-10.6); CARBON DIOXIDE LEVEL 15 MMOL/L (20-31); CHLORIDE LEVEL 117 MMOL/L (98-107); CPK CREATINE PHOSPHOKINASE 49 U/L (34-145); GLOMERULAR FILTRATION RATE > 60.0 (>32); GLUCOSE, FASTING 125 MG/DL (74-106); MB/CK RELATIVE INDEX 3.67 (< OR =4); POTASSIUM SERUM 3.2 MMOL/L (3.5-5.1); SODIUM LEVEL 144 MMOL/L (136-145); TOTAL PROTEIN 4.8 G/DL (5.7-8.2)
[2023-07-17] MEDS ORDERED: ISOVUE-370 76% 100ML VIAL As Ordered ONE (23:14)
[2023-07-17 23:38] LABS: PROCALCITONIN 0.05 ng/ml
[2023-07-18] VITALS (7 sets, daily range): BP systolic 82–109; BP diastolic 52–61; TEMP 96.8–98; O2SAT 93–98
[2023-07-18 00:39] LABS: CK-MB VALUE MASS 2.4 NG/ML (<3.6)
[2023-07-18 00:40] LABS: MB/CK RELATIVE INDEX 3.63 (< OR =4)
[2023-07-18] MEDS ORDERED: ISOVUE-370 76% 100ML VIAL As Ordered ONE (00:42)
[2023-07-18] MEDS ORDERED: PIPERACILLIN/TAZOBACTAM SOD 4.5 GM in D5W MINI-BAG PLUS 50 ML IV ONE (03:45)
[2023-07-18] MEDS ORDERED: ACETAMINOPHEN TAB 650MG DOSE (2X325MG) PO PRN (04:00)
[2023-07-18] MEDS ORDERED: ALBUTEROL SULFATE 2.5MG/0.5ML INH NEB SOLN NEB PRN ×2 (04:00→08:55)
[2023-07-18] MEDS ORDERED: FURO20TA2 PO (04:58)
[2023-07-18] MEDS ORDERED: ALBU2.5V10 NEB (04:58)
[2023-07-18] MEDS ORDERED: CEFD1CAP9 PO (04:58)
[2023-07-18] MEDS ORDERED: MIDO5TA PO (04:58)
[2023-07-18] MEDS ORDERED: XARE15TA PO (04:58)
[2023-07-18] MEDS ORDERED: POTA-149 PO (04:58)
[2023-07-18] MEDS ORDERED: HOME MED LIST COMPLETE! XX SCH (05:00)
[2023-07-18] MEDS ORDERED: POTASSIUM CHLORIDE 10% LIQ 20MEQ/15ML UDC PO ONE (05:00)
[2023-07-18] MEDS: methylPREDNISolone 40MG 1ML VIAL IV SCH ×3 (05:47→20:33)
[2023-07-18] MEDS: IPRATROPIUM 0.5MG/ALBUTEROL 2.5MG INH SOL UD 3ML (DUONEB) NEB SCH ×3 (07:12→20:04)
[2023-07-18 07:47] LABS: ALBUMIN 3.3 G/DL (3.2-5.2); CALCIUM LEVEL 8.4 MG/DL (8.3-10.6); CREATININE FOR GFR 1.02 MG/DL (0.55-1.30); FREE T4 1.22 NG/DL (0.89-1.76); GLOMERULAR FILTRATION RATE 55.4 (>32); POTASSIUM SERUM 4.7 MMOL/L (3.5-5.1); THYROID STIMULATING HORMONE 0.471 uIU/ML (0.55-4.78); TOTAL PROTEIN 7.3 G/DL (5.7-8.2)
[2023-07-18] MEDS: CARVedilol 3.125 MG TAB PO SCH (09:00)
[2023-07-18] MEDS: MIDODRINE 5 MG TAB PO SCH ×3 (10:01→17:15)
[2023-07-18] MEDS: ATORVASTATIN 20 MG TAB PO SCH (10:01)
[2023-07-18] MEDS: ASPIRIN 81MG ENTERIC TABLET PO SCH (10:01)
[2023-07-18] MEDS: LEVOTHYROXINE 75MCG TABLET (0.075MG) PO SCH (10:01)
[2023-07-18] MEDS: FUROSEMIDE 40MG/4ML VIAL IV SCH (10:01)
[2023-07-18] MEDS: RIVAROXABAN 15MG TAB (XARELTO) PO SCH (17:15)
[2023-07-19] MEDS ORDERED: MIDODRINE 5 MG TAB PO ONE
[2023-07-19 00:56] VITALS: BP 98/60
[2023-07-19] MEDS: IPRATROPIUM 0.5MG/ALBUTEROL 2.5MG INH SOL UD 3ML (DUONEB) NEB SCH ×4 (02:07→19:49)
[2023-07-19 04:01] VITALS: BP 96/58; TEMP 97; O2SAT 98
[2023-07-19] MEDS: LEVOTHYROXINE 75MCG TABLET (0.075MG) PO SCH (05:08)
[2023-07-19] MEDS: methylPREDNISolone 40MG 1ML VIAL IV SCH (05:08)
[2023-07-19 06:31] LABS: BASO % 0.1 % (0.0-1.0); HEMATOCRIT 32.4 % (36.0-47.0); HEMOGLOBIN 10.1 g/dl (12.0-15.5); LYMPH # 0.5 10^3/uL (1.5-5.0); LYMPH % 3.9 % (24.0-44.0); MEAN CORPUSCULAR HEMOGLOBIN 28.8 pg (27.0-33.0); MEAN CORPUSCULAR HGB CONC 31.2 g/dl (32.0-36.5); MEAN CORPUSCULAR VOLUME 92.3 fl (80.0-96.0); MONO # 0.4 10^3/uL (0.0-0.8); MONO % 2.9 % (2.0-8.0); NEUTROPHILS # 11.4 10^3/uL (1.5-8.5); NEUTROPHILS % 92.5 % (36.0-66.0); PLATELET COUNT, AUTOMATED 314 10^3/uL (150-450); RED BLOOD COUNT 3.51 10^6/uL (4.00-5.40); WHITE BLOOD COUNT 12.4 10^3/uL (4.0-10.0)
[2023-07-19 06:59] LABS: CALCIUM LEVEL 8.4 MG/DL (8.3-10.6); CREATININE FOR GFR 1.25 MG/DL (0.55-1.30); GLOMERULAR FILTRATION RATE 43.8 (>32); POTASSIUM SERUM 4.8 MMOL/L (3.5-5.1)
[2023-07-19 07:52] VITALS: BP 110/62; TEMP 98; O2SAT 98
[2023-07-19] MEDS: CARVedilol 3.125 MG TAB PO SCH (09:00)
[2023-07-19] MEDS: ASPIRIN 81MG ENTERIC TABLET PO SCH (09:10)
[2023-07-19] MEDS: FUROSEMIDE 40MG/4ML VIAL IV SCH (09:10)
[2023-07-19] MEDS: ATORVASTATIN 20 MG TAB PO SCH (09:10)
[2023-07-19] MEDS: MIDODRINE 5 MG TAB PO SCH ×3 (09:11→17:16)
[2023-07-19 12:24] VITALS: BP 104/70; TEMP 97.7; O2SAT 100
[2023-07-19] MEDS: guaiFENesin 200 MG TAB PO SCH ×2 (12:49→17:17)
[2023-07-19] MEDS: AZITHROMYCIN 250MG TABLET PO SCH (13:38)
[2023-07-19] MEDS: RIVAROXABAN 15MG TAB (XARELTO) PO SCH (17:17)
[2023-07-19 19:45] VITALS: BP 109/65; O2SAT 98
[2023-07-20] VITALS (21 sets, daily range): BP systolic 98–129; BP diastolic 56–71; TEMP 96–98.1; O2SAT 61–100
[2023-07-20] MEDS: IPRATROPIUM 0.5MG/ALBUTEROL 2.5MG INH SOL UD 3ML (DUONEB) NEB SCH ×4 (01:16→19:37)
[2023-07-20 06:11] LABS: BASO % 0.1 % (0.0-1.0); HEMATOCRIT 34.4 % (36.0-47.0); HEMOGLOBIN 10.9 g/dl (12.0-15.5); LYMPH # 0.6 10^3/uL (1.5-5.0); LYMPH % 7.7 % (24.0-44.0); MEAN CORPUSCULAR HEMOGLOBIN 29.4 pg (27.0-33.0); MEAN CORPUSCULAR HGB CONC 31.7 g/dl (32.0-36.5); MEAN CORPUSCULAR VOLUME 92.7 fl (80.0-96.0); MONO # 0.5 10^3/uL (0.0-0.8); MONO % 7.2 % (2.0-8.0); NEUTROPHILS # 6.1 10^3/uL (1.5-8.5); NEUTROPHILS % 83.9 % (36.0-66.0); PLATELET COUNT, AUTOMATED 327 10^3/uL (150-450); RED BLOOD COUNT 3.71 10^6/uL (4.00-5.40); WHITE BLOOD COUNT 7.2 10^3/uL (4.0-10.0)
[2023-07-20] MEDS: guaiFENesin 200 MG TAB PO SCH ×3 (06:11→12:29)
[2023-07-20] MEDS: LEVOTHYROXINE 75MCG TABLET (0.075MG) PO SCH (06:11)
[2023-07-20 06:33] LABS: CALCIUM LEVEL 8.6 MG/DL (8.3-10.6); CREATININE FOR GFR 1.6 MG/DL (0.55-1.30); GLOMERULAR FILTRATION RATE 32.9 (>32); POTASSIUM SERUM 5.4 MMOL/L (3.5-5.1)
[2023-07-20] MEDS ORDERED: PATIROMER SORBITEX CALCIUM 8.4 GM POWDER PACKET (VELTASSA) PO ONE (07:15)
[2023-07-20] MEDS ORDERED: LR 1,000 ML IV SCH (07:15)
[2023-07-20] MEDS ORDERED: LR 1,000 ML IV ONE (07:15)
[2023-07-20] MEDS: MIDODRINE 5 MG TAB PO SCH ×3 (08:22→18:57)
[2023-07-20] MEDS: AZITHROMYCIN 250MG TABLET PO SCH (08:22)
[2023-07-20] MEDS: ASPIRIN 81MG ENTERIC TABLET PO SCH (08:22)
[2023-07-20] MEDS: ATORVASTATIN 20 MG TAB PO SCH (08:23)
[2023-07-20] MEDS: predniSONE 20 MG TAB PO SCH (08:23)
[2023-07-20] MEDS: CARVedilol 3.125 MG TAB PO SCH (08:24)
[2023-07-20] MEDS ORDERED: FUROSEMIDE 40 MG TAB PO SCH (09:00)
[2023-07-20] MEDS ORDERED: MIRALAX *UNIT DOSE* 17GM PACKET PO SCH (16:00)
[2023-07-20] MEDS ORDERED: METAMUCIL (PSYLLIUM) PACKET PO SCH (16:00)
[2023-07-20 16:09] LABS: ALBUMIN 3.3 G/DL (3.2-5.2); CREATININE FOR GFR 1.64 MG/DL (0.55-1.30); PHOSPHORUS LEVEL 6.7 MG/DL (2.4-5.1); POTASSIUM SERUM 6.1 MMOL/L (3.5-5.1)
[2023-07-20] MEDS ORDERED: PATIROMER SORBITEX CALCIUM 8.4 GM POWDER PACKET (VELTASSA) PO STA (16:14)
[2023-07-20] MEDS ORDERED: ALBUTEROL SULFATE 2.5MG/0.5ML INH NEB SOLN NEB STA (16:14)
[2023-07-20] MEDS ORDERED: DEXTROSE 50% 50ML SYRINGE IV STA (16:14)
[2023-07-20] MEDS: HumuLIN R (REGULAR) INSULIN (NovoLIN R) **100U/ML** PER UNIT IV STA ×2 (16:14→16:48)
[2023-07-20] MEDS: PROCHLORPERAZINE 10MG 2ML VIAL IV PRN (16:47)
[2023-07-20] MEDS ORDERED: FUROSEMIDE 40MG/4ML VIAL IV STA (16:49)
[2023-07-20 17:22] LABS: ABG BASE EXCESS -14.2 (-2.0-2.0); ABG HCO3 10.9 MMOL/L (22.0-26.0); ABG O2 SATURATION 96.9 % (95.0-99.0); ABG PARTIAL PRESSURE CO2 24.1 mmHg (35.0-45.0); ABG PARTIAL PRESSURE O2 107.3 mmHg (75.0-100.0); ABG STANDARD HCO3 13.5 MMOL/L. (22.0-26.0); ABG TOTAL CO2 11.7 MMOL/L (23.0-31.0); ABG pH (ARTERIAL) 7.275 UNITS (7.350-7.450)
[2023-07-20] MEDS ORDERED: ISOVUE-370 76% 100ML VIAL As Ordered ONE (17:36)
[2023-07-20 17:59] LABS: BILIRUBIN,DIRECT 1.4 MG/DL (<0.4); BILIRUBIN,TOTAL 1.9 MG/DL (0.3-1.2); TOTAL PROTEIN 6.8 G/DL (5.7-8.2)
[2023-07-20] MEDS: SODIUM BICARBONATE 150 MEQ in STERILE WATER LITER BAG 1,000 ML IV SCH (18:31)
[2023-07-20] MEDS ORDERED: SODIUM CHLORIDE 0.9% INJ 10 ML SYR IV PRN (18:55)
[2023-07-20 19:56] LABS: BASO % 0.2 % (0.0-1.0); HEMATOCRIT 35.5 % (36.0-47.0); HEMOGLOBIN 10.9 g/dl (12.0-15.5); LYMPH # 0.7 10^3/uL (1.5-5.0); LYMPH % 7.2 % (24.0-44.0); MEAN CORPUSCULAR HEMOGLOBIN 29.2 pg (27.0-33.0); MEAN CORPUSCULAR HGB CONC 30.7 g/dl (32.0-36.5); MEAN CORPUSCULAR VOLUME 95.2 fl (80.0-96.0); MONO # 1.2 10^3/uL (0.0-0.8); MONO % 13.7 % (2.0-8.0); NEUTROPHILS # 6.9 10^3/uL (1.5-8.5); NEUTROPHILS % 76.6 % (36.0-66.0); PLATELET COUNT, AUTOMATED 287 10^3/uL (150-450); RED BLOOD COUNT 3.73 10^6/uL (4.00-5.40)
[2023-07-20 20:30] LABS: ALBUMIN 2.9 G/DL (3.2-5.2); CALCIUM LEVEL 8.5 MG/DL (8.3-10.6); CREATININE FOR GFR 1.66 MG/DL (0.55-1.30); GLOMERULAR FILTRATION RATE 31.6 (>32); PHOSPHORUS LEVEL 6.6 MG/DL (2.4-5.1); POTASSIUM SERUM 5.9 MMOL/L (3.5-5.1)
[2023-07-20] MEDS: SODIUM CHLORIDE 0.9% INJ 10 ML SYR IV SCH (22:18)
[2023-07-21] VITALS (39 sets, daily range): BP systolic 54–127; BP diastolic 25–80; TEMP 95–97.9; O2SAT 33–100
[2023-07-21] MEDS: IPRATROPIUM 0.5MG/ALBUTEROL 2.5MG INH SOL UD 3ML (DUONEB) NEB SCH ×4 (01:09→20:33)
[2023-07-21] MEDS: PROCHLORPERAZINE 10MG 2ML VIAL IV PRN ×2 (01:33→14:48)
[2023-07-21] MEDS ORDERED: clonazePAM 0.5 MG TAB PO ONE (04:55)
[2023-07-21] MEDS: SODIUM BICARBONATE 150 MEQ in STERILE WATER LITER BAG 1,000 ML IV SCH (05:56)
[2023-07-21] MEDS: SODIUM CHLORIDE 0.9% INJ 10 ML SYR IV SCH ×3 (06:04→22:00)
[2023-07-21 06:29] LABS: BASO % 0.1 % (0.0-1.0); HEMATOCRIT 33.5 % (36.0-47.0); HEMOGLOBIN 10.4 g/dl (12.0-15.5); LYMPH # 0.6 10^3/uL (1.5-5.0); LYMPH % 5.5 % (24.0-44.0); MEAN CORPUSCULAR HEMOGLOBIN 29.3 pg (27.0-33.0); MEAN CORPUSCULAR VOLUME 94.4 fl (80.0-96.0); MONO # 1.1 10^3/uL (0.0-0.8); MONO % 10.6 % (2.0-8.0); NEUTROPHILS # 8.8 10^3/uL (1.5-8.5); NEUTROPHILS % 82.3 % (36.0-66.0); PLATELET COUNT, AUTOMATED 325 10^3/uL (150-450); RED BLOOD COUNT 3.55 10^6/uL (4.00-5.40); WHITE BLOOD COUNT 10.7 10^3/uL (4.0-10.0)
[2023-07-21 06:43] LABS: CALCIUM LEVEL 8.4 MG/DL (8.3-10.6); CREATININE FOR GFR 1.89 MG/DL (0.55-1.30); GLOMERULAR FILTRATION RATE 27.2 (>32); POTASSIUM SERUM 5.9 MMOL/L (3.5-5.1)
[2023-07-21] MEDS ORDERED: DEXTROSE 50% 50ML SYRINGE IV PRN (07:00)
[2023-07-21] MEDS ORDERED: GLUCOSE 4GM CHEW TABLET PO PRN (07:00)
[2023-07-21] MEDS ORDERED: GLUCAGON INJ 1MG VIAL SC PRN (07:00)
[2023-07-21] MEDS: MIDODRINE 5 MG TAB PO SCH ×4 (08:00→16:05)
[2023-07-21] MEDS ORDERED: VITAMIN D 50,000 UNITS CAPSULE (ERGOCALCIFEROL 1.25MG) PO SCH (09:00)
[2023-07-21] MEDS: AZITHROMYCIN 250MG TABLET PO SCH (09:33)
[2023-07-21] MEDS: predniSONE 20 MG TAB PO SCH (09:33)
[2023-07-21] MEDS ORDERED: PATIROMER SORBITEX CALCIUM 8.4 GM POWDER PACKET (VELTASSA) PO ONE ×2 (10:00→16:15)
[2023-07-21 10:14] LABS: BILIRUBIN,DIRECT 1.7 MG/DL (<0.4); BILIRUBIN,TOTAL 2.2 MG/DL (0.3-1.2)
[2023-07-21 10:16] LABS: VENOUS BASE EXCESS -8.2 (-2.0-2.0); VENOUS HCO3 15.6 MMOL/L (23.0-27.0); VENOUS O2 SATURATION 98.7 % (60.0-80.0); VENOUS PARTIAL PRESSURE CO2 27.4 mmHg (38.0-50.0); VENOUS PARTIAL PRESSURE O2 145.3 mmHg (30.0-50.0); VENOUS PH 7.373 UNITS (7.330-7.430); VENOUS STANDARD HCO3 17.8 MMOL/L; VENOUS TOTAL CO2 16.4 MMOL/L (24.0-28.0)
[2023-07-21 10:46] LABS: PHOSPHORUS LEVEL 7.2 MG/DL (2.4-5.1)
[2023-07-21] MEDS ORDERED: FUROSEMIDE injection 250 MG in D5W 225 ML IV SCH (11:00)
[2023-07-21 12:33] LABS: ALBUMIN 2.8 G/DL (3.2-5.2); CALCIUM LEVEL 7.8 MG/DL (8.3-10.6); CREATININE FOR GFR 1.9 MG/DL (0.55-1.30); PHOSPHORUS LEVEL 6.5 MG/DL (2.4-5.1); POTASSIUM SERUM 5.5 MMOL/L (3.5-5.1)
[2023-07-21] MEDS ORDERED: LEVOTHYROXINE 100MCG (0.1MG) 5ML SDV PF (SOLUTION FORM) IV SCH (15:00)
[2023-07-21 15:10] LABS: PROTHROMBIN TIME 60.1 SECONDS (12.5-14.5)
[2023-07-21 15:27] LABS: INR 7.4
[2023-07-21] MEDS ORDERED: HYDROMORPHONE HCL 0.5 MG/ 0.5 ML SYRINGE IV PRN (15:40)
[2023-07-21] MEDS ORDERED: PHYTONADIONE INJection 5 MG in NS 50 ML IV ONE ×4 (17:00)
[2023-07-21] MEDS ORDERED: DEXTROSE 50% 50ML SYRINGE IV STA (17:18)
[2023-07-21] MEDS ORDERED: MIDODRINE 5 MG TAB PO STA (19:03)
[2023-07-21] MEDS ORDERED: DOPamine HCL 400 MG in IV 1 EA IV SCH (19:10)
[2023-07-21] MEDS ORDERED: DOPamine 400 MG/500 ML BAG IN D5W (800MCG/ML) As Ordered ONE (19:32)
[2023-07-21 20:08] LABS: HEMATOCRIT 32.2 % (36.0-47.0); HEMOGLOBIN 9.9 g/dl (12.0-15.5); MEAN CORPUSCULAR HGB CONC 30.7 g/dl (32.0-36.5); MEAN CORPUSCULAR VOLUME 94.4 fl (80.0-96.0); PLATELET COUNT, AUTOMATED 299 10^3/uL (150-450); RED BLOOD COUNT 3.41 10^6/uL (4.00-5.40)
[2023-07-21 20:27] LABS: ALBUMIN 2.8 G/DL (3.2-5.2); CALCIUM LEVEL 7.7 MG/DL (8.3-10.6); CREATININE FOR GFR 2.07 MG/DL (0.55-1.30); GLOMERULAR FILTRATION RATE 24.5 (>32); PHOSPHORUS LEVEL 7.8 MG/DL (2.4-5.1); POTASSIUM SERUM 5.5 MMOL/L (3.5-5.1)
[2023-07-21 20:59] LABS: ALBUMIN 2.8 G/DL (3.2-5.2); BILIRUBIN,TOTAL 2.6 MG/DL (0.3-1.2); CALCIUM LEVEL 7.7 MG/DL (8.3-10.6); CREATININE FOR GFR 2.02 MG/DL (0.55-1.30); GLOMERULAR FILTRATION RATE 25.2 (>32); POTASSIUM SERUM 5.5 MMOL/L (3.5-5.1); TOTAL PROTEIN 5.8 G/DL (5.7-8.2)
[2023-07-21] MEDS ORDERED: BISACODYL 10MG SUPP PR PRN (21:45)
[2023-07-21] MEDS ORDERED: ATROPINE SULFATE 1% OPHTH SOLN 2ML BTL SL PRN (21:45)
[2023-07-21] MEDS ORDERED: SCOPOLAMINE 1MG TRANSDERMAL PATCH TOP PRN (21:45)
[2023-07-21] MEDS ORDERED: ONDANSETRON 4MG 2ML VIAL IV PRN (21:45)
[2023-07-22] VITALS: BP 69/49
[2023-07-22] MEDS: IPRATROPIUM 0.5MG/ALBUTEROL 2.5MG INH SOL UD 3ML (DUONEB) NEB SCH ×2 (01:30→07:41)
[2023-07-22] MEDS: SODIUM CHLORIDE 0.9% INJ 10 ML SYR IV SCH (06:35)
[2023-07-22] MEDS ORDERED: PATIROMER SORBITEX CALCIUM 8.4 GM POWDER PACKET (VELTASSA) PO SCH (12:00)
[2023-07-22] MEDS: HYDROMORPHONE HCL 0.5 MG/ 0.5 ML SYRINGE IV PRN ×3 (12:16→23:59)
[2023-07-22] MEDS: LORazepam 2 MG/ML 1ML VIAL IV PRN (17:34)
[2023-07-23] MEDS: LORazepam 2 MG/ML 1ML VIAL IV PRN ×4 (02:50→20:19)
[2023-07-23] MEDS: HYDROMORPHONE HCL 0.5 MG/ 0.5 ML SYRINGE IV PRN ×4 (06:13→22:33)
[2023-07-24] MEDS: HYDROMORPHONE HCL 0.5 MG/ 0.5 ML SYRINGE IV PRN ×6 (03:29→20:11)
[2023-07-24] MEDS: HYOSCYAMINE SULFATE 0.125 MG SUBL TABLET PO PRN ×2 (10:45→17:22)
[2023-07-24] MEDS: LORazepam 2 MG/ML 1ML VIAL IV PRN (20:27)
== END 2023-07-24 23:00 | disposition expired | DRG 291 ==
LOC: M ED 20:43 → M ED INP 07-18 03:59 → ENRESERV 07-18 05:24 → M PCU 07-18 06:02 → M MS5PR 07-22 17:20
PROVIDERS: ADMIT Internal Medicine; ATTEND Family Medicine
PROC: 02H633Z Insertion of Infusion Device into Right Atrium, Percutaneous Approach (ICD-10-PCS; principal; 2023-07-20)
PROC: B246ZZZ Ultrasonography of Right and Left Heart (ICD-10-PCS; 2023-07-20)
DX: I11.0 Hypertensive heart disease with heart failure (principal); J96.01 Acute respiratory failure with hypoxia; I50.43 Acute on chronic combined systolic (congestive) and diastolic (congestive) heart failure; K72.00 Acute and subacute hepatic failure without coma; J44.1 Chronic obstructive pulmonary disease with (acute) exacerbation; E87.20 Acidosis, unspecified; I44.2 Atrioventricular block, complete; J90 Pleural effusion, not elsewhere classified; J98.11 Atelectasis; N17.9 Acute kidney failure, unspecified; E87.1 Hypo-osmolality and hyponatremia; D68.9 Coagulation defect, unspecified; I48.0 Paroxysmal atrial fibrillation; E78.00 Pure hypercholesterolemia, unspecified; E87.5 Hyperkalemia; E03.9 Hypothyroidism, unspecified; Z51.5 Encounter for palliative care; Z66 Do not resuscitate; I34.0 Nonrheumatic mitral (valve) insufficiency; I95.89 Other hypotension; J45.909 Unspecified asthma, uncomplicated; K21.9 Gastro-esophageal reflux disease without esophagitis; E83.39 Other disorders of phosphorus metabolism; M81.0 Age-related osteoporosis without current pathological fracture; R57.0 Cardiogenic shock; E78.5 Hyperlipidemia, unspecified; I73.9 Peripheral vascular disease, unspecified; E07.81 Sick-euthyroid syndrome; R10.9 Unspecified abdominal pain; R11.0 Nausea; I25.10 Atherosclerotic heart disease of native coronary artery without angina pectoris; Z95.0 Presence of cardiac pacemaker; Z98.62 Peripheral vascular angioplasty status; Z79.82 Long term (current) use of aspirin; Z79.890 Hormone replacement therapy; Z79.01 Long term (current) use of anticoagulants; Z79.899 Other long term (current) drug therapy; Z88.1 Allergy status to other antibiotic agents; Z88.8 Allergy status to other drugs, medicaments and biological substances; Z91.040 Latex allergy status